=== PATIENT | female | born 1995 | race Two or more races ===

== ENCOUNTER 2021-10-01 04:07 | Day surgery (SDC) | payer OTHER ==
[2021-09-29 16:11] VITALS: BMI 24.5
[2021-10-01] MEDS ORDERED: ACETAMINOPHEN 325 MG TABLET (FP) PO PRN (07:37)
[2021-10-01] MEDS ORDERED: IBUPROFEN 400 MG TABLET (FP) PO PRN (07:37)
[2021-10-01] MEDS ORDERED: PROPOFOL 20 ML ONE ×2 (11:05)
[2021-10-01] MEDS ORDERED: MIDAZOLAM HCL 2 MG/2 ML SINGLE DOSE VIAL ONE (11:05)
[2021-10-01] MEDS ORDERED: KETOROLAC TROMETHAMINE 30 MG/1 ML VIAL ONE (11:24)
[2021-10-01] MEDS ORDERED: DEXAMETHASONE SOD PHOSPHATE 4 MG/1 ML VIAL ONE (11:24)
[2021-10-01] MEDS ORDERED: oxyCODONE HCL 5 MG TABLET PO PRN (12:08)
[2021-10-01] MEDS ORDERED: ONDANSETRON 4 MG/2 ML VIAL IVPUSH PRN (12:08)
[2021-10-01] MEDS ORDERED: LACTATED RINGERS SOLUTION 1,000 ML IV SCH (12:15)
[2021-10-01 14:11] VITALS: BP 109/72; PULSE 60; TEMP 98
== END 2021-10-01 14:13 | disposition home or self-care (01) ==
LOC: JASU-SURG 04:07
PROVIDERS: ATTEND Obstetrics & Gynecology
PROC: 0UJD8ZZ Inspection of Uterus and Cervix, Via Natural or Artificial Opening Endoscopic (ICD-10-PCS; 2021-10-01)
PROC: 0UB98ZZ Excision of Uterus, Via Natural or Artificial Opening Endoscopic (ICD-10-PCS; principal; 2021-10-01 11:38)
PROC: 0UDB7ZX Extraction of Endometrium, Via Natural or Artificial Opening, Diagnostic (ICD-10-PCS; 2021-10-01 11:38)
DX: N84.0 Polyp of corpus uteri (principal); D25.0 Submucous leiomyoma of uterus
CPT/HCPCS: 81025; 86850; 86900; 86901; 88305-TC; 94760